=== PATIENT | male | born 1960 | race Native Hawaiian/Other Pacific Islander ===

== ENCOUNTER 2018-06-02 08:56 | Outpatient (CLI) | payer BC ==
[2018-06-02 09:12] LABS: PLATELET COUNT 351 K/uL (142-355)
[2018-06-02 09:33] LABS: POTASSIUM 4.1 mmol/L (3.6-5.2)
== END 2018-06-02 21:20 | disposition home or self-care (01) ==
LOC: LABW 08:56
PROVIDERS: Student in an Organized Health Care Education/Training Program
DX: R53.83 Other fatigue (principal); E03.8 Other specified hypothyroidism
CPT/HCPCS: 36415; 80053; 84436; 84443; 84479; 85027

== ENCOUNTER 2023-01-21 17:27 | Emergency (ER) | payer OTHER ==
[~2023-01-21] VITALS: Ht 167.6 cm; Wt 61.2 kg
[2023-01-21 17:32] VITALS: BP 175/88; TEMP 98
== END 2023-01-21 19:25 | disposition home or self-care (01) ==
LOC: ED 17:27
PROC: 2W3TX1Z Immobilization of Left Foot using Splint (ICD-10-PCS; principal; 2023-01-21)
DX: S92.902A Unspecified fracture of left foot, initial encounter for closed fracture (principal); W01.0XXA Fall on same level from slipping, tripping and stumbling without subsequent striking against object, initial encounter; Z91.81 History of falling; Y93.01 Activity, walking, marching and hiking
CPT/HCPCS: 99283